=== PATIENT | female | born 1945 | race Two or more races ===

== ENCOUNTER 2017-06-11 05:20 | Day surgery (SDC) | payer OTHER ==
[2017-06-11] MEDS ORDERED: MACROBID 100 M100 MG PO (09:24)
[2017-06-11] MEDS ORDERED: ULTRACET PO (09:24)
== END 2017-06-11 10:45 | disposition home or self-care (01) ==
LOC: CIR.AMB 05:20
DX: N81.11 Cystocele, midline (principal)